=== PATIENT | male | born 1970 | race Caucasian/White ===

== ENCOUNTER 2021-09-24 17:06 | Emergency (ER) | payer SELFPAY ==
[2021-09-24] MEDS ORDERED: Sodium Chloride 0.9% 2.5 ML Syringe FLUSH PRN (17:21)
[2021-09-24] MEDS ORDERED: Sodium Chloride 0.9% 10 ML Syringe FLUSH PRN (17:21)
[2021-09-24 18:12] LABS: BLOOD UREA NITROGEN,BUN 18 mg/dL (7.0-18.0); CHLORIDE,CL 102 mmol/L (98-107); GLUCOSE RANDOM 97 mg/dL (74-106); LIPASE 95 U/L (73-393); POTASSIUM,K 4.1 mmol/L (3.5-5.1); SODIUM,NA 136 mmol/L (136-148)
[2021-09-24] MEDS ORDERED: Orphenadrine 60 MG/2 ML Inj IM ONE (21:19)
== END 2021-09-24 21:39 | disposition home or self-care (01) ==
LOC: MW.ED 17:06
DX: R07.9 Chest pain, unspecified (principal); M62.838 Other muscle spasm
CPT/HCPCS: 36415; 71045; 80053; 83690; 84484; 85025; 85379; 85610; 93005; 96372; 99285; J2360

== ENCOUNTER 2022-08-02 22:40 | Emergency (ER) | payer OTHER ==
[2022-08-02] MEDS ORDERED: Ibuprofen 600 MG Tab PO ONE (23:20)
[2022-08-02] MEDS ORDERED: methylPREDNISolone Sodium Succinate 125 MG/2 ML SDV IM ONE (23:20)
[2022-08-02] MEDS ORDERED: Cyclobenzaprine 10 MG Tab PO ONE (23:20)
== END 2022-08-02 23:49 | disposition home or self-care (01) ==
LOC: MW.ED 22:40
DX: M54.12 Radiculopathy, cervical region (principal)
CPT/HCPCS: 96372; 99283; A9270; J2930